=== PATIENT | male | born 1970 | race Caucasian/White ===

== ENCOUNTER 2017-03-15 20:06 | Emergency (ER) | payer SELFPAY ==
[~2017-03-15] VITALS: Ht 177.8 cm; Wt 134.7 kg
[2017-03-15] MEDS ORDERED: ASPIRIN 81 MG TABLET CHEW ONE (20:55)
[2017-03-15] MEDS ORDERED: ASPIRIN 81 MG TABLET CHEW PO ONE (21:00)
[2017-03-15] MEDS ORDERED: SODIUM CHLORIDE 0.9% 1,000ML IVBOLUS ONE (21:00)
[2017-03-15 21:18] LABS: BLOOD UREA NITROGEN 24 mg/dL (7-18)
[2017-03-15 21:26] LABS: IS PT STATUS REG ER OR PRE ER? YES
[2017-03-15 21:58] VITALS: BP 146/95
== END 2017-03-15 22:01 | disposition home or self-care (01) ==
LOC: ED 21:55
DX: R55 Syncope and collapse (principal); I10 Essential (primary) hypertension
CPT/HCPCS: 36415; 71010; 80048; 82040; 84484; 85025; 93005; 96360; 99285; J7030